=== PATIENT | male | born 1990 | race Two or more races ===

== ENCOUNTER 2022-04-17 18:40 | Inpatient (IN) ==
[2022-04-17 19:37] LABS: ABS Basophils 0.1 10^3/ul (0-0.2); ABS Eosinophils 0.1 10^3/ul (0-0.6); ABS Lymphocytes 2.3 10^3/ul (1.0-4.8); ABS Monocytes 0.6 10^3/ul (0-0.8); ABS Neutrophils 6.8 10^3/ul (1.5-7.7); Eosinophil % 1.4 %; Hematocrit 44 % (42-52); Hemoglobin 14.5 g/dL (14.0-18.0); Mean Corpuscular HGB Conc 33 g/dL (31-36); Mean Corpuscular Hemoglobin 29 pg (27-31); Mean Corpuscular Volume 86 fL (80-94); Mean Platelet Volume 7.2 fL (7.4-10.4); Platelet Count 320 10^3/uL (150-450); Red Blood Count 5.05 10^6 /uL (4.18-5.48); Red Cell Distribution Width 16 % (10-15); White Blood Count 9.9 10^3/uL (3.5-10.8)
[2022-04-17 19:43] LABS: Urine Appearance Clear; Urine Bilirubin Negative (Negative); Urine Blood Negative (Negative); Urine Color Yellow; Urine Glucose Negative (Negative); Urine Ketones Negative (Negative); Urine Nitrite Negative (Negative); Urine Protein Negative (Negative); Urine Urobilinogen 0.2 (Negative) (Negative)
[2022-04-17 19:55] LABS: Urine Benzodiazepine Screen None Detected (None Detect); Urine Cannabinoids Screen Presumptive Positive (None Detect); Urine Opiates Screen None Detected (None Detect)
[2022-04-17 20:13] LABS: ALT 14 U/L (7-52); AST 23 U/L (13-39); Acetaminophen < 15 mcg/mL; Albumin 4.3 g/dL (3.2-5.2); Albumin/Globulin Ratio 1.8 (1-3); Alcohol, S < 13 mg/dL (<13); Alkaline Phosphatase 80 U/L (35-149); Anion Gap 10 mmol/L (2-11); Blood Urea Nitrogen 11 mg/dL (6-24); CO2 Carbon Dioxide 30 mmol/L (22-32); Calcium 9.3 mg/dL (8.6-10.3); Chloride 101 mmol/L (101-111); Globulin 2.4 g/dL (2-4); Glucose 72 mg/dL (70-100); Potassium 4.1 mmol/L (3.5-5.0); Salicylate < 2.50 mg/dL (<30); Sodium 141 mmol/L (135-145); Total Protein 6.7 g/dL (6.4-8.9)
[2022-04-17 20:27] LABS: TSH Ultra Thyroid Stim Horm 1.41 mcIU/mL (0.34-5.60)
[2022-04-18] MEDS ORDERED: Al Hydrox/Mg Hydrox/Simet LIQ 30 ML UDC PO PRN (00:20)
[2022-04-18] MEDS: Vitamin THERAPEUTIC TAB PO SCH (11:22)
[2022-04-19] MEDS: Vitamin THERAPEUTIC TAB PO SCH (09:27)
[2022-04-19] MEDS: Nicotine GUM 2MG FRUIT FLAVOR PO PRN (19:29)
[2022-04-20] MEDS: Vitamin THERAPEUTIC TAB PO SCH (07:45)
[2022-04-21] MEDS: Nicotine GUM 2MG FRUIT FLAVOR PO PRN (12:50)
[2022-04-21] MEDS: Vitamin THERAPEUTIC TAB PO SCH (12:51)
[2022-04-22] MEDS: Vitamin THERAPEUTIC TAB PO SCH (07:30)
[2022-04-22] MEDS: Nicotine GUM 2MG FRUIT FLAVOR PO PRN (15:10)
[2022-04-23] MEDS: Nicotine GUM 2MG FRUIT FLAVOR PO PRN (09:45)
[2022-04-23] MEDS: Vitamin THERAPEUTIC TAB PO SCH (10:24)
[2022-04-23 18:49] VITALS: BP 128/67
[2022-04-24] MEDS: Vitamin THERAPEUTIC TAB PO SCH (09:18)
[2022-04-24] MEDS: Nicotine GUM 2MG FRUIT FLAVOR PO PRN ×2 (11:51→13:10)
== END 2022-04-24 13:25 | disposition home or self-care (01) | DRG 753 ==
LOC: ED 18:40 → EDHOLD 23:14 → BSU 23:29
PROVIDERS: ADMIT Psychiatry & Neurology Psychiatry; ATTEND Psychiatry & Neurology Psychiatry

== ENCOUNTER 2022-05-24 21:38 | Inpatient (IN) ==
[2022-05-24 22:37] LABS: ABS Basophils 0.1 10^3/ul (0-0.2); ABS Eosinophils 0.1 10^3/ul (0-0.6); ABS Lymphocytes 2.3 10^3/ul (1.0-4.8); ABS Monocytes 0.6 10^3/ul (0-0.8); ABS Neutrophils 5.3 10^3/ul (1.5-7.7); Eosinophil % 0.9 %; Hematocrit 42 % (42-52); Hemoglobin 13.7 g/dL (14.0-18.0); Lymphocyte % 27.6 %; Mean Corpuscular HGB Conc 33 g/dL (31-36); Mean Corpuscular Hemoglobin 28 pg (27-31); Mean Corpuscular Volume 86 fL (80-94); Mean Platelet Volume 7.1 fL (7.4-10.4); Nucleated Red Blood Cells % 0.1; Platelet Count 312 10^3/uL (150-450); Red Blood Count 4.84 10^6 /uL (4.18-5.48); Red Cell Distribution Width 16 % (10-15); White Blood Count 8.4 10^3/uL (3.5-10.8)
[2022-05-24 22:39] LABS: Urine Appearance Clear; Urine Bilirubin Negative (Negative); Urine Blood Negative (Negative); Urine Color Yellow; Urine Glucose Negative (Negative); Urine Ketones Negative (Negative); Urine Nitrite Negative (Negative); Urine Protein Negative (Negative); Urine Specific Gravity 1.017 (1.002-1.030); Urine Urobilinogen Negative (Negative)
[2022-05-24 22:54] LABS: ALT 18 U/L (7-52); AST 20 U/L (13-39); Acetaminophen < 15 mcg/mL; Albumin 4.3 g/dL (3.2-5.2); Albumin/Globulin Ratio 1.8 (1-3); Alcohol, S < 13 mg/dL (<13); Alkaline Phosphatase 70 U/L (35-149); Anion Gap 12 mmol/L (2-11); Blood Urea Nitrogen 13 mg/dL (6-24); CO2 Carbon Dioxide 26 mmol/L (22-32); Calcium 9.1 mg/dL (8.6-10.3); Chloride 102 mmol/L (101-111); Globulin 2.4 g/dL (2-4); Glucose 93 mg/dL (70-100); Sodium 140 mmol/L (135-145); Total Protein 6.7 g/dL (6.4-8.9); eGFR CKD-EPI 121.5 (>60)
[2022-05-24 22:55] LABS: Salicylate < 2.50 mg/dL (<30)
[2022-05-24 22:56] LABS: Urine Benzodiazepine Screen None Detected (None Detect); Urine Cannabinoids Screen Presumptive Positive (None Detect); Urine Opiates Screen None Detected (None Detect)
[2022-05-25] MEDS ORDERED: Al Hydrox/Mg Hydrox/Simet LIQ 30 ML UDC PO PRN (02:38)
[2022-05-25] MEDS: Vitamin THERAPEUTIC TAB PO SCH (09:23)
[2022-05-25] MEDS: Nicotine GUM 2MG FRUIT FLAVOR PO ONE ×2 (14:22→15:23)
[2022-05-25] MEDS ORDERED: Nicotine GUM 2MG FRUIT FLAVOR PO PRN (15:01)
[2022-05-26] MEDS: Vitamin THERAPEUTIC TAB PO SCH (09:12)
[2022-05-27 09:36] VITALS: BP 109/63
[2022-05-27] MEDS: Vitamin THERAPEUTIC TAB PO SCH (10:31)
== END 2022-05-27 14:47 | disposition home or self-care (01) | DRG 752 ==
LOC: ED 21:38 → EDHOLD 05-25 01:28 → BSU 05-25 02:36
PROVIDERS: ADMIT Psychiatry & Neurology Psychiatry; ATTEND Psychiatry & Neurology Psychiatry